=== PATIENT | female | born 1985 | race Two or more races ===

== ENCOUNTER 2020-09-14 14:14 | Outpatient (REF) | payer OTHER, SELFPAY ==
--- NOTE | 2020-09-14 15:35 | XR_ITS ---
EXAMINATION: XR HAND, LEFT XR HAND, RIGHT CLINICAL INFORMATION: Pain. COMPARISON: None TECHNIQUE: 3 views of each hand FINDINGS: Left hand: No fracture or dislocation. Alignment is anatomic. Joint spaces are maintained. No osseous erosions. The soft tissues are unremarkable. Right hand: No fracture or dislocation. Alignment is anatomic. Joint spaces are maintained. No osseous erosions. The soft tissues are unremarkable. XR/XR hand LT min 3V IMPRESSION: Normal appearance of both hands.
--- NOTE | 2020-09-14 15:35 | XR_ITS ---
EXAMINATION: XR HAND, LEFT XR HAND, RIGHT CLINICAL INFORMATION: Pain. COMPARISON: None TECHNIQUE: 3 views of each hand FINDINGS: Left hand: No fracture or dislocation. Alignment is anatomic. Joint spaces are maintained. No osseous erosions. The soft tissues are unremarkable. Right hand: No fracture or dislocation. Alignment is anatomic. Joint spaces are maintained. No osseous erosions. The soft tissues are unremarkable. XR/XR hand RT min 3V IMPRESSION: Normal appearance of both hands.
[2020-09-14 16:04] LABS: MANUAL DIFF FLAG NO
[2020-09-14 16:11] LABS: Basophils Percent Auto 0.5 % (0-2); Eosinophils Absolute Auto 0.1 X10*3/uL (0.0-0.4); Eosinophils Percent Auto 1.8 % (0-4); Hematocrit 36.2 % (37-47); Hemoglobin 11.8 g/dl (12.0-16.0); Imm Gran Abs Auto 0.02 X10*3/uL (0.00-0.03); Imm Gran Pct Auto 0.3 % (0.0-0.4); Lymphocytes Absolute Auto 1.9 X10*3/uL (1.2-4.9); Lymphocytes Percent Auto 25.2 % (20-40); Mean Corpuscular HGB Conc 32.6 g/dl (31.0-35.0); Mean Corpuscular Hemoglobin 26.9 pg (27.0-33.0); Mean Corpuscular Volume 82.5 fL (80-98); Mean Platelet Volume 10.1 fL (9.4-12.3); Monocytes Absolute Auto 0.6 X10*3/uL (0.1-1.2); Monocytes Percent Auto 7.5 % (2-11); Neutrophils Absolute Auto 4.8 X10*3/uL (2.0-8.3); Neutrophils Percent Auto 64.7 % (45-73); Platelet Count 303 X10*3/uL (160-400); Red Blood Count 4.39 X10*6/uL (4.20-5.50); Red Cell Distribution Width 16.2 % (11.0-16.0); White Blood Count 7.3 X10*3/uL (4.8-10.8)
[2020-09-14 16:41] LABS: Alanine Aminotransferase 26 U/L (0-31); Albumin Level 4.1 g/dL (3.5-5.0); Alkaline Phosphatase 56 U/L (39-117); Anion Gap 13 (12-20); Aspartate Amino Transferase 24 U/L (5-31); Bilirubin Total 0.3 mg/dL (0.0-1.0); Blood Urea Nitrogen 15 mg/dL (9-16); C Reactive Protein 0.81 mg/dL (< or = 0.50); Calcium 8.9 mg/dL (8.4-10.2); Carbon Dioxide 24 mmol/L (22-29); Chloride 106 mmol/L (96-108); Estimated Glomerular Filt Rate > 60; Glucose Random 85 mg/dL (60-115); Potassium 4.5 mmol/l (3.3-5.1); Sodium 138 mmol/L (135-145); Total Protein 6.8 g/dL (6.5-8.0)
[2020-09-14 16:43] LABS: Rheumatoid Factor < 15.0 IU/mL (<15.0)
[2020-09-14 16:59] LABS: Thyroid Stimulating Hormone 0.84 uIU/mL (0.32-4.0)
[2020-09-14 18:24] LABS: Erythrocyte Sedimentation Rate 12 MM/HR (0-20)
[2020-09-15 08:57] LABS: Lyme Abs Screen <0.90 index
[2020-09-15 13:56] LABS: Antibody to SS-A Antigen <1.0 NEG AI (<1.0 NEG); Antibody to SS-B Antigen <1.0 NEG AI (<1.0 NEG)
[2020-09-17 19:10] LABS: Cyclic Citrullinated Peptide <16 UNITS
[2020-09-18 15:51] LABS: Vitamin D 25-OH, D2 <4 ng/mL; Vitamin D 25-OH, D3 10 ng/mL; Vitamin D 25-OH, Total 10 ng/mL (30-100)
== END 2020-09-14 14:15 | disposition home or self-care (01) ==
LOC: HO.LAB 14:14
PROVIDERS: PCP Nurse Practitioner Family; Referring Provider Nurse Practitioner Family; Visit Provider Student in an Organized Health Care Education/Training Program
DX: M25.50 Pain in unspecified joint (principal)
CPT/HCPCS: 36415; 73130; 80053; 82306; 84443; 85025; 85652; 86140; 86200; 86235; 86431; 86618; 99202

== ENCOUNTER 2020-10-12 14:17 | Outpatient (REF) | payer OTHER, SELFPAY | END 2020-10-12 14:18 | disposition home or self-care (01) | LOC: HO.LAB 14:17 | PROVIDERS: PCP Nurse Practitioner Family; Visit Provider Internal Medicine | DX: Z20.828 Contact with and (suspected) exposure to other viral communicable diseases (principal) | CPT/HCPCS: C9803; U0003 ==

== ENCOUNTER → 2020-10-19 10:56 | Outpatient (BNVA) | payer OTHER, SELFPAY | PROVIDERS: PCP Nurse Practitioner Family; Visit Provider Student in an Organized Health Care Education/Training Program | DX: Z76.89 Persons encountering health services in other specified circumstances (principal) ==

== ENCOUNTER 2025-05-02 08:28 | Outpatient (REF) | payer MEDICAID, SELFPAY ==
[2025-05-02 15:10] LABS: Hemoglobin A1C 105.6971 umol/L; Total Hemoglobin (HGBA1C) 3357.4989 umol/L
[2025-05-02 15:22] LABS: Estimated Glomerular Filt Rate > 60
== END 2025-05-02 08:29 | disposition home or self-care (01) ==
LOC: HO.HKASLDS 08:28
PROVIDERS: PCP Nurse Practitioner Family; Visit Provider Internal Medicine Rheumatology
DX: Z13.89 Encounter for screening for other disorder (principal)
CPT/HCPCS: 36415; 82565; 83036; 84443; 99212

== ENCOUNTER 2025-05-02 08:28 | Outpatient (AMB) | payer MEDICAID, SELFPAY ==
--- NOTE | 2025-05-02 08:30 | MHC.OFFVIS ---
Vital Signs 05/02/25 08:34 Height 5 ft 3.5 in Weight 236 lb 8 oz BMI 41.2 BP 110/72 Blood Pressure Location Lt brachial Position Sitting Pulse 65 Pulse Source Pulse Oximeter Pulse Oximetry (%) 95 Oxygen Delivery Method Room Air Intake Visit Reasons: OA Intake Note: Patient presents today for joint pain. Allergies acetaminophen (From Tylenol) Allergy (Intermediate, Verified 05/02/25 08:30) Vomiting Penicillins Allergy (Intermediate, Verified 05/02/25 08:30) swollen HPI HPI OA: Details: She has been experiencing pain in bilateral knees left worse than right. She is having difficulty with ambulating. She is experiencing sharp pains in bilateral feet that radiate up to the knee for the last 6 months. She was using her right hinged brace but reports recently that she could not find it. She may have left it at a doctor's visit. She went to physical therapy, which ended in November or December. She does about 20 minutes of exercise daily. It is difficult for her to do more due to uncontrolled pain. [facility] Medical History (Updated 05/02/25 @ 09:14 by Jake Macias MD) Chronic pain Asthma Surgical History (Updated 05/02/25 @ 08:43 by Josseline Chavarria CMA) History of hernia repair Hx of tubal ligation Family History Father Diabetes HTN (hypertension) Arthritis Mother HTN (hypertension) Arthritis CVD (cardiovascular disease) Maternal Aunt Breast cancer Colon cancer Social History Household Members: Children Alcohol intake: current Cigarettes Per Day: 5 Years Smoked: 20 Physical Exam Vital Signs: Last Vital Signs Pulse 65 05/02/25 08:34 BP 110/72 05/02/25 08:34 Pulse Ox 95 05/02/25 08:34 Oxygen Delivery Method Room Air 05/02/25 08:34 BMI result Body Mass Index 41.2 Const Other: General: Comfortable CVS: RRR Respiratory: clear to auscultation bilaterally. Good respiratory effort Skin: No lesions seen MSK: Diffuse allodynia. Tender to palpate bilateral knees. Left crepitus palpated. Knee flexion 90 degrees bilateral. No synovitis. Assessment & Plan Assessment & Plan (1) Osteoarthritis of knees, bilateral: Comment: Uncontrolled pain. She is also experiencing uncontrolled pain from fibromyalgia. We discussed treatment for chronic pain from knee osteoarthritis with duloxetine, which also treats pain from fibromyalgia. I will obtain baseline labs. Rheumatology history: She received right cortisone injection September 2023 and December 2023, which were ineffective. X-ray 11/07/2021 reveals minimal degenerative changes, left knee x-ray from 04/07/2024 is normal. She has failed meloxicam and diclofenac gel. Code(s): M17.0 - Bilateral primary osteoarthritis of knee Category: Medical Plan: Bilateral knee x-rays ordered Baseline labs ordered Start duloxetine 30 mg daily. After a month if she finds no change in pain, she will call office and I will increase dose to 60 mg daily Left knee hinged brace prescription prescribed Continue exercises daily Return to clinic in 3 months (2) Neuropathy of foot: Comment: Six-month history. Her father has diabetic neuropathy. Code(s): G57.90 - Unspecified mononeuropathy of unspecified lower limb Category: Medical Plan: TSH and hemoglobin A1c ordered. If negative, I will order bilateral lower extremity EMGS (3) Fibromyalgia: Comment: Uncontrolled Code(s): M79.7 - Fibromyalgia Category: Medical Plan: See above Orders: Orders XR Knee Roger 3V Today M17.0 - Bilateral primary osteoarthritis of knee Hemoglobin A1c Today G57.90 - Unspecified mononeuropathy of unspecified lower limb TSH reflex Free T4 Today M17.0 - Bilateral primary osteoarthritis of knee Creatinine Today M17.0 - Bilateral primary osteoarthritis of knee Medications: New duloxetine 30 mg PO DAILY 30 caps 2RF leg brace (Knee Support Brace) As directed Dx: osteoarthritis knee Left hinge knee brace 1 ea 0RF Coding Level of Care Code Est Pt Level 4 (76490) Complex EM visit Add On G2211 Diagnoses Osteoarthritis of knees, bilateral M17.0 Neuropathy of foot G57.90 Fibromyalgia M79.7
--- OUTSIDE RECORDS SUMMARY | 2025-05-02 08:32 | XMS_ITS | Encounter Summary ---
Author Organization [facility] Address [address] [place] [address] Care Team Providers Care Tyre Retreader Name Role Phone Millie Layton ANA Primary Care Provider Encounter Details Date Type Department Care Team (Late st Contact Info) Description 09/16/2023 / TELEPHONE [facility] [address] [place] [phone] Padmini Cochran [address] [place] [address] Social History Tobacco Use Types Packs/Day Years Used Date Smoking Tobacco: Every Day Cigarettes 0.5 25 Smokeless Tobacco: Current Alcohol Use Standard Drinks/Week Comments Yes 0 (1 standard drink = 0.6 oz pur e alcohol) occasionally Social Connections Answer Date Recorded Connectedness 0 05/15/2023 Financial Resource Strain Answer Date R ecorded Financial Resource Strain 0 2022 Stress Answer Date Recorded Stress 0 05/15/2023 Physical Activity Answer Date Recorded Physical Activity 0 06/27/2019 Food Insecurity Answer Date Recorded Food 0 05/15/2023 Transportation Needs Answer Date Record ed Transportation 0 05/15/2023 Housing Stability Answer Date Recorded Housing 0 05/15/2023 Safety and Environment Answer Date Josesito rded Safety 0 05/15/2023 Utilities Answer Date Recorded Utilities 0 05/15/2023 Employment Answer Date Recorded Stress 0 01/20/2022 Comments No Sex and Gender Information Value Date Recorded Sex Assigned at Female 01/04/2019 12:22 PM PST Legal Sex Female 8:04 AM PST Gender Identity Female 01/04/2019 12:22 PM PST Sexual Orientation Straight 01/04/2019 12 :54 PM PST Occupation Industry Job Start Date Job End Date not working, stopped due to fall at previous job Not on file Not on file Not on file documented as of this encounter Plan of Treatment Upcoming Encounters Date Type Department Care Team (Late st Contact Info) Description 05/15/2025 9:00 AM EDT BH/MH Visits [facility] [address] [place] [phone] Kyle Owens LCSW [address] [place] [address] 06/22/2025 11:40 AM EDT BH/MH Visits [facility] [address] [place] [phone] Pat Garcia FNP [address] [place] [phone] 07/25/2025 9:20 AM EDT Office Visit [facility] [address] [place] [phone] Michele Bruno MD [address] [place] [phone] documented as of this encounter Visit Diagnoses Diagnosis Agoraphobia- Primary Agoraphobia without mention of panic attacks MDD (major depressive disorder), recurrent episode, moderate (CMS & HHS-HCC) Major depressive disorder, recurrent episode, moderate documented in this encounter Additional Health Concerns Assessment Noted Time PHQ-9 Depression Total Score: 9 08/12/20 23 9:37 AM PDT documented as of this encounter Care Teams Tyre Retreader Relationship Specialty Start Date End Date Millie Layton FNP [address] [place] [phone] PCP - General Internal Medicine 08/06/19 documented as of this encounter
--- OUTSIDE RECORDS SUMMARY | 2025-05-02 08:32 | XMS_ITS | Clinical Summary ---
Author Organization [facility] Address [address] [place] [address] Phone Care Team Providers Care Maintenance Manager Name Role Phone BijuMillie ng JACKIE Primary Care Provider [phone] Allergies Active Allergy Reactions Criticality Noted Date Comments Acetaminophen 05/23/2024 Other 05/23/2024 Penicillins 05/23/2024 Medications meclizine HCl (MECLIZINE ORAL) Take by mouth. Active BUPROPION HCL ORAL Take by mouth. Active tramadol HCl (TRAMADOL ORAL) Take by mouth. Active baclofen (LIORESAL) 10 mg tablet Take 1 tablet (10 mg total) by mouth 3 (three) times a day for 5 days. 15 each 04/11/2025 Active predniSONE (DELTASONE) 20 mg tablet Take 1 tablet (20 mg total) by mouth 1 (one) time each day for 10 days. 10 each 04/11/2025 Encounters Date Type Department Care Team Description 04/11/2025 10:00 AM EDT - 04/11/2025 1:46 PM EDT Emergency [facility] Emergency [address] [place] [address] Pain in both lower extremities (Primary Dx) Discharge Disposition: Home or Self Care from Last 3 Months Social History Tobacco Use Types Packs/Day Years Used Date Smoking Tobacco: Never Assessed Comments Unknown Sex and Gender Information Value Date Recorded Sex Assigned at Not on file Legal Sex Female 6:16 PM EST Gender Identity Not on file Sexual Orientation Not on file Obstetrics History Last Filed Vital Signs Vital Sign Reading Time Taken Comments Blood Pressure 137/90 04/11/2025 9:49 AM EDT Pulse 89 04/11/2025 9:49 AM EDT Temperature 36.8 C (98.2 F) 04/11/2025 9:49 AM EDT Respiratory Rate 18 04/11/2025 9:49 AM EDT Oxygen Saturation 96% 04/11/2025 9:49 AM EDT Inhaled Oxygen Concentration - - Weight 108 kg (238 lb) 04/11/2025 9:49 AM EDT Height 160 cm (5' 3 ) 04/11/2025 9:49 AM EDT Body Mass Index 42.16 04/11/2025 9:49 AM EDT Plan of Treatment Health Maintenance Due Date Last Done Comments Breast Cancer Screening 1983 Hepatitis A Vaccines (1 of 2 - Risk 2-dose series) 2002 Cervical Cancer Screening: Pap Smear 02/09/2004 Hepatitis B Vaccines (3 of 3 - 19+ 3-dose series) 11/22/2014 09/27/2014, 03/30/2014 HIV Screening 10/04/2022 Social Influencers of Health Screening 10/04/2022 COVID-19 Vaccine ( season) 2024 01/02/2022, 11/21/2021 Influenza Vaccine (#1) 2025 , 10/07/2019, 11/20/2017, Additional history exists Depression Screening 05/01/2026 05/01/2025 Cholesterol Screening (Lipid Panel) 12/01/2028 12/01/2023, 12/01/2023, 01/14/2023, Additional history exists DTaP,Tdap,and Td Vaccines (4 - Td or Tdap) 05/19/2033 05/19/2023, 10/07/2019, 07/10/2011 HPV Vaccines Completed 06/12/2010, 0705/2008, 02/29/2008 Hepatitis C Screening Completed 10/10/2020, 020 Pneumococcal Vaccine: Pediatrics (0 to 5 Years) and At-Risk Patients (6 to 64 Years) Completed 06/29/2024, 11/20/2017 HIB Vaccines Aged Out No longer eligi ble based on patient's age to complete this topic IPV Vaccines Aged Out No longer eligi ble based on patient's age to complete this topic MMR Vaccines Aged Out No longer eligi ble based on patient's age to complete this topic Meningococcal ACWY Vaccine Aged Out N o longer eligible based on patient's age to complete this topic Meningococcal B Vaccine Aged Out No l onger eligible based on patient's age to complete this topic RSV Immunization Patients Under 20 months Aged Out No longer eligible based on patient's age to complete this topic Varicella Vaccines Aged Out No longer eligible based on patient's age to complete this topic Procedures Procedure Name Priority Date/Time Associated Diagnosis Comments VAS US DUPLEX LOWER EXT VENOUS BILAT STAT 04/11/2025 11:52 AM EDT Pain in both lower extremities CBC WITH AUTO DIFFERENTIAL STAT 04/11/2025 11:01 AM EDT BORRELIA BURGDORFERI ANTIBODY STAT 04/11/2025 11:01 AM EDT BASIC METABOLIC PANEL STAT 04/11/2025 11:01 AM EDT CBC AND DIFFERENTIAL STAT 04/11/2025 11:01 AM EDT THYROID STIMULATING HORMONE WITH REFLEX TO FREE T4 AND FREE T3 STAT 04/11/2025 11:01 AM EDT from Last 3 Months Results * Vascular US Duplex Lower Extremity Venous Bilateral (04/11/2025 11:52 AM EDT) Anatomical Region Laterality Modality Vascular, Abdomen Ultrasound 04/11/2025 12:0 3 PM EDT Impressions 04/11/2025 12:03 PM EDT NO RIGHT OR LEFT LOWER EXTREMITY DEEP VENOUS THROMBOSIS. -------- FINAL REPORT -------- Dictated By: Torri Macias Dictated Date: 04/11/2025 12:03 ET Assigned Physician: Torri Macias Reviewed and Electronically Signed By: Torri Macias Signed Date: 04/11/2025 12:03 ET Workstation ID: [id number] Transcribed By: Self Edit Transcribed Date: 04/11/2025 12:03 ET Narrative 04/11/2025 12:03 PM EDT PROCEDURE: VAS US DUPLEX LOWER EXT VENOUS BILAT INDICATION: pain in extremities TECHNIQUE: 2-D and color Doppler imaging of the lower extremity venous vasculature with compression and augmentation maneuvers. COMPARISON: No priors available. FINDINGS: RIGHT: There is normal flow, compression, and augmentation from the common femoral through the popliteal vein. Visualized calf veins unremarkable. LEFT: There is normal flow, compression, and augmentation from the common femoral through the popliteal vein. Visualized calf veins unremarkable. Procedure Note Torri Macias MD - 04/11/2025 PROCEDURE: VAS US DUPLEX LOWER EXT VENOUS BILAT INDICATION: pain in extremities TECHNIQUE: 2-D and color Doppler imaging of the lower extremity venousvasculature with compression and augmentation maneuvers. COMPARISON: No priors available. FINDINGS: RIGHT: There is normal flow, compression, and augmentation from the commonfemoral through the popliteal vein. Visualized calf veins unremarkable. LEFT: There is normal flow, compression, and augmentation from the commonfemoral through the popliteal vein. Visualized calf veins unremarkable. IMPRESSION: NO RIGHT OR LEFT LOWER EXTREMITY DEEP VENOUS THROMBOSIS. -------- FINAL REPORT -------- Dictated By: Torri Macias Dictated Date: 04/11/2025 12:03 ET Assigned Physician: Torri Macias Reviewed and Electronically Signed By: Torri Macias Signed Date: 04/11/2025 12:03 ET Workstation ID: [id number] Transcribed By: Self Edit Transcribed Date: 04/11/2025 12:03 ET Leana BAEZA CV VASCULAR PROCEDURES F inal Result * Thyroid stimulating hormone with reflex to free t4 and free t3 (TSH Reflex) (04/11/2025 11:01 AM EDT) TSH 1.16 0.40 - 4.00 mcIU/mL LAB CHEMISTRY METHOD 04/11/2025 12:58 PM EDT [facility] ([facility]) [facility] Blood Venous blood specimen / Unknown Venipuncture / Unknown 04/11/2025 11:01 AM EDT 04/11/2025 11:10 AM EDT Leana BAEZA LAB BLOOD ORDERABLES Fin al Result [facility] [address] [place] [address], * (ABNORMAL) CBC auto differential (04/11/2025 11:01 AM EDT) [facility] WBC 5.0 4.8 - 10.8 K/mcL LAB HEMETOLOGY METHOD 04/11/2025 11:18 AM EDT [facility] RBC 4.50 3.80 - 4.80 M/mcL LAB HEMETOLOGY METHOD 04/11/2025 11:18 AM EDT [facility] Hemoglobin 11.5 11.5 - 16.0 g/dL LAB HEMETOLOGY METHOD 04/11/2025 11:18 AM [facility] Hematocrit 36.7 35.0 - 47.0 % LAB HEMETOLOGY METHOD 04/11/2025 11:18 AM EDT [facility] MCV 81.6 79.0 - 98.0 FL LAB [facility]OLOGY [facility] MCH 25.6(L) 27.0 - 32.0 pcg LAB HEMETOLOGY METHOD 04/11/2025 11:18 AM [facility] MCHC 31.3(L) 32.0 - 37.0 g/dL LAB HEMETOLOGY METHOD [facility] RDW 16.6(H) 11.0 - 15.0 % LAB HEMETOLOGY METHOD 04/11/2025 11:18 AM EDT [facility] Platelets 303 130 - 400 K/mcL LAB HEMETOLOGY METHOD [facility] MPV 9.7 7.0 - 11.0 FL LAB HEMETOLOGY METHOD 04/11/2025 11:18 AM EDT [facility] NRBC 0.0 <1.0 % LAB HEMETOLOGY METHOD 04/11/2025 11:18 AM [facility] NRBC Absolute 0.00 <0.10 K/mcL LAB HEMETOLOGY METHOD 04/11/2025 11:18 AM [facility] Neutrophils Relative 52.6 % LAB HEMETOLOGY METHOD 04/11/2025 11:18 AM [facility] Lymphocytes Relative 35.8 % LAB HEMETOLOGY METHOD 04/11/2025 11:18 AM [facility] Monocytes Relative 6.4 % LAB HEMETOLOGY METHOD 04/11/2025 11:18 AM [facility] Eosinophils Relative 4.0 % LAB HEMETOLOGY METHOD 04/11/2025 11:18 AM [facility] Basophils Relative 0.8 % LAB HEMETOLOGY METHOD 04/11/2025 11:18 AM [facility] Immature Granulocytes Relative 0.4 % LAB HEMETOLOGY METHOD 04/11/2025 11:18 AM [facility] Neutrophils Absolute 2.63 1.50 - 7.00 K/mcL LAB HEMETOLOGY METHOD 04/11/2025 11:18 AM [facility] Lymphocytes Absolute 1.79 1.00 - 5.00 K/mcL LAB HEMETOLOGY METHOD 04/11/2025 11:18 AM [facility] Monocytes Absolute 0.32 0.20 - 1.00 K/mcL LAB HEMETOLOGY METHOD 04/11/2025 11:18 AM [facility] Eosinophils Absolute 0.20 0.00 - 0.50 K/mcL LAB HEMETOLOGY METHOD 04/11/2025 11:18 AM [facility] Basophils Absolute 0.04 0.00 - 0.20 K/mcL LAB HEMETOLOGY METHOD 04/11/2025 11:18 AM [facility] Immature Granulocytes Absolute 0.02 0.00 - 0.03 K/mcL LAB HEMETOLOGY METHOD 04/11/2025 11:18 AM EDT [facility] Blood Venous blood specimen / Unknown Venipuncture / Unknown 04/11/2025 11:01 AM EDT 04/11/2025 11:10 AM EDT [facility] LAB BLOOD ORDERABLES Fin al Result Performing Organization Address [facility] de Phone Number [facility] [address] [place] [address], * Borrelia burgdorferi antibody (04/11/2025 11:01 AM EDT) [facility] Lyme Ab Negative Negative LAB CHEMISTRY METHOD 04/11/2025 2:22 PM EDT [facility] Comment: No laboratory evidence of infection with B. burgdorferi (Lyme disease). Negative results may occur in patients recently infected (<=14 days) with B. burgdorferi. If recent infection is suspected, repeat testing on a new sample collected in 7- 14 days is recommended. Blood Venous blood specimen / Unknown Venipuncture / Unknown 04/11/2025 11:01 AM EDT 04/11/2025 11:10 AM EDT [facility] [place] LAB BLOOD ORDERABLES Fin al Result Performing Organization Address City/[facility]/ZIP Co de Phone Number [facility] [address] [place] [address], [place] [phone] * (ABNORMAL) Basic metabolic panel (04/11/2025 11:01 AM EDT) [facility] Sodium 142 133 - 145 mmol/L LAB CHEMISTRY METHOD 04/11/2025 11:54 AM EDT [facility] Potassium 4.0 3.5 - 5.5 mmol/L LAB CHEMISTRY METHOD 04/11/2025 11:54 AM EDT [facility] Chloride 112(H) 96 - 110 mmol/L LAB CHEMISTRY METHOD 04/11/2025 11:54 AM [facility] CO2 25 21 - 32 mmol/L LAB CHEMISTRY METHOD 04/11/2025 11:54 AM [facility] Anion Gap 5 3 - 11 LAB CHEMISTRY METHOD 04/11/2025 11:54 AM [facility] Glucose 126(H) 70 - 100 mg/dL LAB CHEMISTRY METHOD 04/11/2025 11:54 AM [facility] BUN 10 5 - 25 mg/dL LAB CHEMISTRY METHOD 04/11/2025 11:54 AM [facility] Creatinine 0.73 0.50 - 1.10 mg/dL LAB CHEMISTRY METHOD 04/11/2025 11:54 AM [facility] eGFR 105 >=60 mL/min/1. 73m2 LAB CHEMISTRY METHOD 04/11/2025 11:54 AM [facility] Comment:Calculation based on the Chronic Kidney Disease Epidemiology Collaboration (CKD-EPI) equation refit without adjustment for race. BUN/Creatinine Ratio 13.7 LAB CHEMISTRY METHOD 04/11/2025 11:54 AM [facility] Calcium 8.5 8.5 - 10.5 mg/dL LAB CHEMISTRY METHOD 04/11/2025 11:54 AM [facility] Blood Venous blood specimen / Unknown Venipuncture / Unknown 04/11/2025 11:01 AM EDT 04/11/2025 11:10 AM EDT us Leana BAEZA LAB BLOOD ORDERABLES Fin al Result [facility] [address] [place] [address], [place] [phone] from Last 3 Months Insurance MEDICAID - [place] Care Teams Maintenance Manager Relationship Specialty Start Date End Date Millie Layton NP [address] [place] [phone] PCP - General 07/14/22
[2025-05-02 08:34] VITALS: BP 110/72; PULSE 65; O2SAT 95; BMI 41.2
== END 2025-05-02 09:10 | disposition home or self-care (01) ==
PROVIDERS: PCP Nurse Practitioner Family; Visit Provider Internal Medicine Rheumatology
DX: M17.0 Bilateral primary osteoarthritis of knee (principal); G57.90 Unspecified mononeuropathy of unspecified lower limb; M79.7 Fibromyalgia
CPT/HCPCS: 99214

== ENCOUNTER 2025-05-02 10:08 | Outpatient (REF) | payer MEDICAID, SELFPAY ==
--- NOTE | ~2025-05-02 | XR_ITS ---
Exam: Three-view x-ray bilateral knees TECHNIQUE: AP bilateral standing, lateral, sunrise view lower extremity joint, knees INDICATION: Knee pain Prior: None FINDINGS: Right knee: There is no joint effusion. There is mild narrowing of the medial joint space. Minimal marginal osteophyte formation is present along the medial tibial plateau. There is no soft tissue calcification or chondrocalcinosis. Patellofemoral joint is anatomically aligned. Left knee: There is no joint effusion. There is mild narrowing of the medial joint space. There are small marginal osteophytes along the medial tibial plateau. Patellofemoral joint is unremarkable. XR/XR Knee Roger 3V IMPRESSION: Bilateral knees: Mild medial joint space narrowing and small marginal osteophytes, likely related to early osteoarthritis. Electronically signed by: Kal Dumont MD 05/02/2025 10:31 AM EDT
== END 2025-05-02 10:09 | disposition home or self-care (01) ==
LOC: HO.XRAY 10:08
PROVIDERS: Visit Provider Internal Medicine Rheumatology
DX: M17.0 Bilateral primary osteoarthritis of knee (principal)
CPT/HCPCS: 36415; 73562; 82565; 83036; 84443; 99212

== ENCOUNTER → 2025-05-02 10:11 | Outpatient (BNV) | payer MEDICAID, SELFPAY | PROVIDERS: Visit Provider Radiology Diagnostic Radiology | DX: M25.562 Pain in left knee (principal); M25.561 Pain in right knee | CPT/HCPCS: 73562 ==

== ENCOUNTER 2025-06-02 14:01 | Outpatient (REF) | payer MEDICAID, SELFPAY ==
--- NOTE | 2025-06-02 14:04 | EMG_ITS ---
Chief complaint: Been burning on both feet/legs, denies numbness Reason for referral: Evaluate for neuropathy Referred by: Dr. Macias Procedure done: Bilateral lower extremity NCS/EMG Precautions and/or limitations: Poor needle tolerance The limb temperature was monitored continuously and remained between 32-36 degrees C during the performance of the NCS. Nerve Conduction Studies Anti Sensory Summary Table ?Stim Site NR Onset (ms) Norm Onset (ms) Peak (ms) Norm Peak (ms) O-P Amp (?V) Norm O-P Amp Site1 Site2 Delta-0 (ms) Dist (cm) Vasu (m/s) Norm Vasu (m/s) Left Sural Anti Sensory Run #2 (Lat Mall) Calf ? 2.5 3.0 <4.0 8.6 >5.0 Calf Lat Mall 2.5 14.0 56 Right Sural Anti Sensory (Lat Mall) Calf ? 2.0 3.0 <4.0 17.3 >5.0 Calf Lat Mall 2.0 14.0 70 Motor Summary Table ?Stim Site NR Onset (ms) Norm Onset (ms) O-P Amp (mV) Norm O-P Amp iAmp (mV) Amp (1st) (%) Site1 Site2 Delta-0 (ms) Dist (cm) Vasu (m/s) Norm Vasu (m/s) Left Peroneal Motor (Ext Dig Brev) Ankle ? 3.7 <4.0 6.8 >2.5 8.4 100.0 Ankle Ext Dig Brev 3.7 0.0 B Fib ? 9.3 6.2 7.7 91.2 B Fib Ankle 5.6 31.0 55 >40 Poplt ? 9.8 6.3 7.7 92.6 Poplt B Fib 0.5 5.0 100 >40 Right Peroneal Motor (Ext Dig Brev) Ankle ? 3.9 <4.0 5.4 >2.5 6.5 100.0 Ankle Ext Dig Brev 3.9 0.0 B Fib ? 9.9 5.1 6.1 94.4 B Fib Ankle 6.0 30.0 50 >40 Poplt ? 10.7 5.1 6.0 94.4 Poplt B Fib 0.8 5.0 63 >40 Right Tibial Motor (Abd Mcknight Brev) Ankle ? 2.9 <5 13.2 >2.5 18.7 100.0 Ankle Abd Mcknight Brev 2.9 0.0 Knee ? 9.6 10.7 14.9 81.1 Knee Ankle 6.7 36.0 54 >40 EMG ?Side Muscle Nerve Root Ins Act Fibs Psw Amp Dur Poly Recrt Int Pat Comment Right AbdHallucis MedPlantar S1-2 Nml Nml Nml Nml Nml 0 Nml Complete Right AntTibialis Dp Br Peron L4-5 Nml Nml Nml Nml Nml 0 Nml Complete Right PostTibialis Tibial L5, S1 Nml Nml Nml Nml Nml 0 Nml Complete Right MedGastroc Tibial S1-2 Nml Nml Nml Nml Nml 0 Nml Complete Right VastusMed Femoral L2-4 Nml Nml Nml Nml Nml 0 Nml Complete FINDINGS: All motor and sensory nerves tested showed normal latencies, amplitudes and conduction velocities. Concentric needle EMG was performed in selected muscles of the right lower extremity. Study did not reveal signs of electric abnormalities as shown in the table above. IMPRESSION: 1. This is a normal study. 2. There is no electrodiagnostic evidence for peroneal neuropathy, tibial neuropathy, lumbosacral plexopathy, lumbar radiculopathy, or peripheral neuropathy. Thank you for your kind referral. Nichole Ojeda MD, MAYTE Board Certified, [place] Board [employer] and Rehabilitation (ABPMR) Board Certified, [place] Board of Electrodiagnostic Medicine (ABEM) CODIN [address] MTDD
--- OUTSIDE RECORDS SUMMARY | 2025-06-02 14:04 | XMS_ITS | Clinical Summary ---
Author Organization [facility] Address [address] [place] [address] [address] Prov[address] Care Court Liaison Name Role Phone Unavailable Primary Care Provider Unavailabl e Encounters Date Type Department Care Team Description 05/23/2025 Population Health Risk Score [facility] (C3) Department [address] [phone] Provider, Population Health Generic from Last 3 Months Social History Tobacco Use Types Packs/Day Years Used Date Smoking Tobacco: Never Assessed Comments Unknown Sex and Gender Information Value Date Recorded Sex Assigned at Not on file Legal Sex Female 9:21 PM EDT Gender Identity Not on file Sexual Orientation Not on file Plan of Treatment Health Maintenance Due Date Last Done Comments Depression Screening 1983 HIV Screening 1983 SDOH Screening 1983 Disability Screening 1983 Alcohol/Substance Use Screening 1995 Tobacco Screening 1995 Family Planning (PISQ) 1998 HPV Vaccines (1 - 3-dose series) 1998 Hepatitis C Screening 2001 DTaP/Tdap/Td Vaccines (1 - Tdap) 2002 Hepatitis B Vaccines (1 of 3 - 19+ 3-dose series) 2002 Pap Smear 02/09/2004 Cervical Cancer Screening 2013 HPV/Cotest 2013 Mammogram 2023 COVID-19 Vaccine ( - 2023-2 5 season) 2024 Influenza Vaccine (#1) 2025 Zoster Vaccines (1 of 2) 2033 RSV Patients and Pa tients Aged 60 years or older (1 - 1-dose 75+ series) 2058 HIB Vaccines Aged Out No longer eligi ble based on patient's age to complete this topic Hepatitis A Vaccines Aged Out No long er eligible based on patient's age to complete this topic IPV Vaccines Aged Out No longer eligi ble based on patient's age to complete this topic Meningococcal B Vaccine Aged Out No l onger eligible based on patient's age to complete this topic Meningococcal Vaccine Aged Out No dilcia richard eligible based on patient's age to complete this topic Pneumococcal Vaccine: Pediat rics (0 to 5 Years) and At-Risk Patients (6 to 49) Years Aged Out No longer eligible b ased on patient's age to complete this topic RSV under 20 months Aged Out No longe r eligible based on patient's age to complete this topic Rotavirus Vaccines Aged Out No longer eligible based on patient's age to complete this topic
--- OUTSIDE RECORDS SUMMARY | 2025-06-02 14:04 | XMS_ITS | Encounter Summary ---
Author Organization [facility] Address [address] [place] [address] Care Team Providers Care Singing Teacher Name Role Phone Millie Layton ANA Primary Care Provider [phone] Encounter Details Date Type Department Care Team (Late st Contact Info) Description 09/16/2023 / TELEPHONE [facility] [address] [place] [phone] Padmini Cochran [address] [place] [address] Social History Tobacco Use Types Packs/Day Years [...] Care Team (Late st Contact Info) Description 06/22/2025 11:40 AM EDT /MH Visits [facility] [address] [place] [phone] Pat Garcia FNP [address] [place] [address] 07/25/2025 9:20 AM EDT Office Visit [facility] [address] [place] [phone] Michele Bruno MD [facility] [place] [address] documented as of this encounter Visit Diagnoses Diagnosis Agoraphobia- Primary Agoraphobia without mention of panic attacks MDD (major depressive disorder), recurrent episode, moderate (CMS & HHS-HCC) Major depressive disorder, recurrent episode, moderate documented in this encounter Additional Health Concerns Assessment Noted Time PHQ-9 Depression Total Score: 9 08/12/20 23 9:37 AM PDT documented as of this encounter Care Teams Singing Teacher Relationship Specialty Start Date End Date Millie Layton FNP [address] [place] [id number] PCP - General Internal Medicine 08/06/19 documented as of this encounter
--- OUTSIDE RECORDS SUMMARY | 2025-06-02 14:04 | XMS_ITS | Clinical Summary ---
Author Organization [facility] Address [address] [place] [address] Phone Care Team Providers Care Supervisor Endless Track Vehicle Name Role Phone Millie Layton NP Primary Care Provider [phone] Allergies Active Allergy Reactions Criticality Noted Date Comments Acetaminophen 05/23/2024 Other 05/23/2024 Penicillins 05/23/2024 Pregabalin Palpitations 03/12/2022 Chest discomfort Shrimp 03/12/2022 Medications meclizine HCl (MECLIZINE ORAL) Take by mouth. Active BUPROPION HCL ORAL Take by mouth. Active tramadol HCl (TRAMADOL ORAL) Take by mouth. Active baclofen (LIORESAL) 10 mg tablet Take 1 tablet (10 mg total) by mouth 3 (three) times a day for 5 days. 15 each 04/11/2025 Active Encounters Date Type Department Care Team Description 05/22/2025 12:00 PM EDT - 05/22/2025 4:48 PM EDT [facility] Emergency [address] [place] [address] Rosemary Herring MD Left lower quadrant abdominal pain (Primary Dx) Discharge Disposition: Left Against Medical Advice 04/11/2025 10:00 AM EDT - 04/11/2025 1:46 PM EDT [facility] [address] [place] [address] Pain in both lower extremities (Primary Dx) Discharge Disposition: Home or Self Care from Last 3 Months Medical History Medical History Date Comments Asthma Depression Anxiety Social History Tobacco Use Types Packs/Day Years Used Date Smoking Tobacco: Every Day Cigarettes Smokeless Tobacco: Never Tobacco Cessation:Ready to Q uit: Not Asked; Counseling Given: Not Answered Comments Unknown Sex and Gender Information Value Date Recorded Sex Assigned at Not on file Legal Sex Female 6:16 PM EST Gender Identity Not on file Sexual Orientation Not on file Obstetrics History Last Filed Vital Signs Vital Sign Reading Time Taken Comments Blood Pressure 131/62 05/22/2025 12:18 PM EDT Pulse 89 05/22/2025 12:18 PM EDT Temperature 37.4 C (99.3 F) 05/22/2025 12:18 PM EDT Respiratory Rate 18 05/22/2025 12:18 PM EDT Oxygen Saturation 97% 05/22/2025 12:18 PM EDT Inhaled Oxygen Concentration - - Weight 104 kg (230 lb) 05/22/2025 12:05 PM EDT Height 160 cm (5' 3 ) 05/22/2025 12:05 PM EDT Body Mass Index 40.74 05/22/2025 12:05 PM EDT Plan of Treatment Health Maintenance Due Date Last Done Comments Breast Cancer Screening 1983 Hepatitis A Vaccines (1 of 2 - Risk 2-dose series) 2002 Cervical Cancer Screening: Pap Smear 02/09/2004 Hepatitis B Vaccines (3 of 3 - 19+ 3-dose series) 11/22/2014 09/27/2014, 03/30/2014 HIV Screening 10/04/2022 Social Influencers of Health Screening 10/04/2022 COVID-19 Vaccine ( season) 2024 01/02/2022, 11/21/2021 Depression Screening 11/02/2024 Influenza Vaccine (#1) 2025 , 10/07/2019, 11/20/2017, Additional history exists Cholesterol Screening (Lipid Panel) 12/01/2028 12/01/2023, 12/01/2023, 01/14/2023, Additional history exists DTaP,Tdap,and Td Vaccines (4 - Td or Tdap) 05/19/2033 05/19/2023, 10/07/2019, 07/10/2011 HPV Vaccines Completed 06/12/2010, 05/2008, 02/29/2008 Hepatitis C Screening Completed 10/10/2020, 020 Pneumococcal Vaccine: Pediatrics (0 to 5 Years) and At-Risk Patients (6 to 49 Years) Completed 06/29/2024, 11/20/2017 HIB Vaccines Aged [...] Procedure Name Priority Date/Time Associated Diagnosis Comments HOFFMAN URINE CULTURE TUBE Routine 05/22/2025 1:38 PM EDT EXTRA TUBES Routine 05/22/2025 1:38 PM EDT POC , URINE DIAGNOSTIC STAT 05/22/2025 1:14 PM EDT URINALYSIS WITH REFLEX MICROSCOPIC STAT 05/22/2025 1:12 PM EDT URINALYSIS WITH REFLEX MICROSCOPIC STAT 05/22/2025 1:12 PM EDT CBC WITH AUTO DIFFERENTIAL STAT 05/22/2025 12:58 PM EDT LIPASE STAT 05/22/2025 12:58 PM EDT COMPREHENSIVE METABOLIC PANEL STAT 05/22/2025 12:58 PM EDT CBC AND DIFFERENTIAL STAT 05/22/2025 12:58 PM EDT VAS US DUPLEX LOWER EXT VENOUS BILAT [...] EDT from Last 3 Months Results * Hoffman urine culture tube (05/22/2025 1:38 PM EDT) [facility] Extra Tube Hold for add-ons. 05/22/2025 3:01 PM EDT [facility] Comment:Auto resulted. Urine Urine specimen obtained by clean catch procedure / Unknown 05/22/2025 1:38 PM EDT 05/22/2025 1:39 PM EDT us Rosemary Herring MD LAB URINE ORDERABLES Final Resul t [facility] [address] [place] [address], [place] [phone] * POC , urine manually resulted (05/22/2025 1:14 PM EDT) [facility] HCG, Ur POC Negative Negative POC hCG Int QC Pass? Yes Yes Urine Urine specimen obtained by clean catch procedure / Unknown 05/22/2025 1:14 PM EDT us Rosemary Herring MD POINT OF CARE TEST ENTER/EDIT OR DERABLES Final Result * (ABNORMAL) Urinalysis with reflex microscopic (05/22/2025 1:12 PM EDT) [facility] Specific [place] Urine 1.021 1.003 - 1.030 LAB URINALYSIS - AUTOMATED METHOD 05/22/2025 2:05 PM [facility] pH, Urine 6.0 5.0 - 8.0 pH LAB URINALYSIS - AUTOMATED METHOD 05/22/2025 2:05 PM [facility] Leukocytes, Urine Trace(A) Negative LAB URINALYSIS - AUTOMATED METHOD 05/22/2025 2:05 PM [facility] Nitrite, Urine Negative Negative LAB URINALYSIS - AUTOMATED METHOD 05/22/2025 2:05 PM [facility] Protein, Urine Negative <=Trace mg/dL LAB URINALYSIS - AUTOMATED METHOD 05/22/2025 2:05 PM [facility] Glucose, Urine Negative Negative mg/dL LAB URINALYSIS - AUTOMATED METHOD 05/22/2025 2:05 PM [facility] Ketones, Urine Negative Negative mg/dL LAB URINALYSIS - AUTOMATED METHOD 05/22/2025 2:05 PM [facility] Urobilinogen, Urine 0.2 0.2 - 1.0 mg/dL LAB URINALYSIS - AUTOMATED METHOD 05/22/2025 2:05 PM [facility] Bilirubin, Urine Negative Negative LAB URINALYSIS - AUTOMATED METHOD 05/22/2025 2:05 PM [facility] Blood, Urine Negative Negative LAB URINALYSIS - AUTOMATED METHOD 05/22/2025 2:05 PM [facility] RBC, Urine 2.4 0 - 4 /HPF LAB URINALYSIS - AUTOMATED METHOD 05/22/2025 2:05 PM [facility] WBC, Urine 3.3 0 - 4 /HPF LAB URINALYSIS - AUTOMATED METHOD 05/22/2025 2:05 PM [facility] Squamous Epithelial, Urine 72(H) 0 - 60 /LPF LAB URINALYSIS - AUTOMATED METHOD 05/22/2025 2:05 PM [facility] Bacteria, Urine Few(A) Negative /HPF LAB URINALYSIS - AUTOMATED METHOD 05/22/2025 2:05 PM EDT [facility] Hyaline Casts, Urine 0.8 0 - 3 /LPF LAB URINALYSIS - AUTOMATED METHOD 05/22/2025 2:05 PM EDT [facility] Urine Urine specimen obtained by clean catch procedure / Unknown Non-blood Collection / Unknown 05/22/2025 1:12 PM EDT 05/22/2025 1:34 PM EDT us Rosemary Herring MD LAB URINE ORDERABLES Final Resul t [facility] [address] [place] [address], [place] [phone] * (ABNORMAL) CBC auto differential (05/22/2025 12:58 PM EDT) Only the most recent of2 resultswithin the time period is included. WBC 6.8 4.8 - 10.8 K/mcL LAB HEMETOLOGY METHOD 05/22/2025 1:48 PM EDT [facility] RBC 4.80 3.80 - 4.80 M/mcL LAB HEMETOLOGY METHOD 05/22/2025 1:48 PM EDT [facility] Hemoglobin 12.7 11.5 - 16.0 g/dL LAB HEMETOLOGY METHOD 05/22/2025 1:48 PM EDT [facility] Hematocrit 39.4 35.0 - 47.0 % LAB HEMETOLOGY METHOD 05/22/2025 1:48 PM EDT [facility] MCV 82.3 79.0 - 98.0 FL LAB HEMETOLOGY METHOD 05/22/2025 1:48 PM EDT [facility] MCH 26.5(L) 27.0 - 32.0 pcg LAB HEMETOLOGY METHOD [facility]25 [facility] MCHC 32.2 32.0 - 37.0 g/dL LAB HEMETOLOGY METHOD 05/22/2025 1:48 PM [facility] RDW 16.5(H) 11.0 - 15.0 % LAB HEMETOLOGY METHOD 05/22/2025 1:48 PM [facility] Platelets 323 130 - 400 K/mcL LAB HEMETOLOGY METHOD 05/22/2025 1:48 [facility] MPV 10.4 7.0 - 11.0 FL LAB HEMETOLOGY METHOD 05/22/2025 1:48 PM [facility] NRBC 0.0 <1.0 % LAB HEMETOLOGY METHOD 05/22/2025 1:48 PM [facility] NRBC Absolute 0.00 <0.10 K/mcL LAB HEMETOLOGY METHOD 05/22/2025 1:48 PM [facility] Neutrophils Relative 53.3 % LAB HEMETOLOGY METHOD 05/22/2025 1:48 PM [facility] Lymphocytes Relative 34.2 % LAB HEMETOLOGY METHOD 05/22/2025 1:48 PM [facility] Monocytes Relative 8.1 % LAB HEMETOLOGY METHOD 05/22/2025 1:48 PM [facility] Eosinophils Relative 3.5 % LAB HEMETOLOGY METHOD 05/22/2025 1:48 PM [facility] Basophils Relative 0.6 % LAB HEMETOLOGY METHOD 05/22/2025 1:48 PM [facility] Immature Granulocytes Relative 0.3 % LAB HEMETOLOGY METHOD 05/22/2025 1:48 PM [facility] Neutrophils Absolute 3.63 1.50 - 7.00 K/mcL LAB HEMETOLOGY METHOD 05/22/2025 1:48 PM EDT [facility] Lymphocytes Absolute 2.33 1.00 - 5.00 K/mcL LAB HEMETOLOGY METHOD 05/22/2025 1:48 PM EDT [facility] Monocytes Absolute 0.55 0.20 - 1.00 K/mcL LAB HEMETOLOGY METHOD 05/22/2025 1:48 PM EDT [facility] Eosinophils Absolute 0.24 0.00 - 0.50 K/[facility] LAB HEMETOLOGY METHOD 05/22/2025 1:48 PM EDT [facility] Basophils Absolute 0.04 0.00 - 0.20 K/[facility] LAB HEMETOLOGY METHOD 05/22/2025 1:48 PM EDT [facility] Immature Granulocytes Absolute 0.02 0.00 - 0.03 K/[facility] LAB HEMETOLOGY METHOD 05/22/2025 1:48 PM EDT [facility] Blood Venous blood specimen / Unknown Venipuncture / Unknown 05/22/2025 12:58 PM EDT 05/22/2025 1:33 PM EDT us George Shultz MD LAB BLOOD ORDERABLES Final Resul t Performing Organization Address City/[facility]/ZIP Co de Phone Number [facility] [address] [place] [address], * Lipase (05/22/2025 12:58 PM EDT) Lipase 29 13 - 75 unit/L LAB CHEMISTRY METHOD 05/22/2025 2:37 PM EDT [facility] Blood Venous blood specimen / Unknown Venipuncture / Unknown 05/22/2025 12:58 PM EDT 05/22/2025 1:34 PM EDT us George Shultz MD LAB BLOOD ORDERABLES Final Resul t [facility] [address] [place] [address], [place] [phone] * (ABNORMAL) Comprehensive metabolic panel (05/22/2025 12:58 PM EDT) Sodium 138 133 - 145 mmol/L LAB CHEMISTRY METHOD 05/22/2025 2:39 PM [facility] Potassium 4.7 3.5 - 5.5 mmol/L LAB CHEMISTRY METHOD 05/22/2025 2:39 PM [facility] Chloride 106 96 - 110 mmol/L LAB CHEMISTRY METHOD 05/22/2025 2:39 PM [facility] CO2 27 21 - 32 mmol/L LAB CHEMISTRY METHOD 05/22/2025 2:39 PM [facility] Anion Gap 5 3 - 11 LAB CHEMISTRY METHOD 05/22/2025 2:39 PM [facility] Glucose 108(H) 70 - 100 mg/dL LAB CHEMISTRY METHOD 05/22/2025 2:39 PM [facility] BUN 9 5 - 25 mg/dL LAB CHEMISTRY METHOD 05/22/2025 2:39 PM [facility] Creatinine 0.69 0.50 - 1.10 mg/dL LAB CHEMISTRY METHOD 05/22/2025 2:39 PM [facility] eGFR 111 >=60 mL/min/1. 73m2 LAB CHEMISTRY METHOD 05/22/2025 2:39 PM [facility] Comment:Calculation based on the Chronic Kidney Disease Epidemiology Collaboration (CKD-EPI) equation refit without adjustment for race. BUN/Creatinine Ratio 13.0 LAB CHEMISTRY METHOD 05/22/2025 2:39 PM [facility] Calcium 9.5 8.5 - 10.5 mg/dL LAB CHEMISTRY METHOD 05/22/2025 2:39 PM [facility] AST (SGOT) 19 10 - 42 unit/L LAB CHEMISTRY METHOD 05/22/2025 2:39 PM EDT [facility] ALT (SGPT) 26 10 - 60 unit/L LAB CHEMISTRY METHOD 05/22/2025 2:39 PM EDT [facility] Alkaline Phosphatase 80 42 - 121 unit/L LAB CHEMISTRY METHOD 05/22/2025 2:39 PM EDT [facility] Total Protein 6.8 6.0 - 8.0 g/dL LAB CHEMISTRY METHOD 05/22/2025 2:39 PM EDT [facility] Albumin 3.5 3.2 - 5.0 g/dL LAB CHEMISTRY METHOD 05/22/2025 2:39 PM EDT [facility] Total Bilirubin 0.3 0.0 - 1.4 mg/dL LAB CHEMISTRY METHOD 05/22/2025 2:39 PM EDT [facility] Blood Venous blood specimen / Unknown Venipuncture / Unknown 05/22/2025 12:58 PM EDT 05/22/2025 1:34 PM EDT us George Shultz MD LAB BLOOD ORDERABLES Final Resul t [facility] [address] [place] [address], [place] [phone] * Vascular US Duplex Lower Extremity Venous [...] Signed Date: 04/11/2025 12:03 ET Workstation ID: [id number] Transcribed By: Self Edit Transcribed Date: 04/11/2025 [...] Signed Date: 04/11/2025 12:03 ET Workstation ID: [id number] Transcribed By: Self Edit Transcribed Date: 04/11/2025 12:03 ET Leana BAEZA CV VASCULAR PROCEDURES F inal Result * Thyroid stimulating hormone with reflex to free t4 and free t3 (TSH Reflex) (04/11/2025 11:01 AM EDT) TSH 1.16 0.40 - 4.00 mcIU/mL LAB CHEMISTRY METHOD 04/11/2025 12:58 PM EDT [facility] Blood Venous blood specimen / Unknown Venipuncture / Unknown 04/11/2025 11:01 AM EDT 04/11/2025 11:10 AM EDT [facility] Shaquille BAEZA LAB BLOOD ORDERABLES Fin al Result Performing Organization Address [facility] Co de Phone Number [facility] [address] [place] [address], * Borrelia burgdorferi antibody (04/11/2025 11:01 AM EDT) [facility] Lyme Ab Negative Negative LAB CHEMISTRY METHOD 04/11/2025 2:22 PM EDT [facility] Comment: No laboratory evidence of infection with B. burgdorferi (Lyme disease). Negative results may occur in patients recently infected (<=14 days) with B. burgdorferi. If recent infection is suspected, repeat testing on a new sample collected in 7- 14 days is recommended. Blood Venous blood specimen / Unknown Venipuncture / Unknown 04/11/2025 11:01 AM EDT 04/11/2025 11:10 AM EDT Leana Shaquille BAEZA LAB BLOOD ORDERABLES Fin al Result Performing Organization Address [facility] Co de Phone Number [facility] [address] [place] [address], * (ABNORMAL) Basic metabolic panel (04/11/2025 11:01 AM EDT) [facility] Sodium 142 133 - 145 mmol/L LAB CHEMISTRY METHOD 04/11/2025 11:54 AM EDT [facility] Potassium 4.0 3.5 - 5.5 mmol/L LAB CHEMISTRY METHOD 04/11/2025 11:54 AM EDT [facility] Chloride 112(H) 96 - 110 mmol/L LAB CHEMISTRY METHOD 04/11/2025 11:54 AM EDT [facility] CO2 25 21 - 32 mmol/L LAB CHEMISTRY METHOD 04/11/2025 11:54 AM EDT [facility] Anion Gap 5 3 - 11 LAB CHEMISTRY METHOD 04/11/2025 11:54 AM [facility] Glucose 126(H) 70 - 100 mg/dL LAB CHEMISTRY METHOD 04/11/2025 11:54 AM [facility] BUN 10 5 - 25 mg/dL LAB CHEMISTRY METHOD 04/11/2025 11:54 AM [facility] Creatinine 0.73 0.50 - 1.10 mg/dL LAB CHEMISTRY METHOD 04/11/2025 11:54 AM EDT [facility] eGFR 105 >=60 mL/min/1. 73m2 LAB CHEMISTRY METHOD 04/11/2025 11:54 AM [facility] Comment:Calculation based on the Chronic Kidney Disease Epidemiology Collaboration (CKD-EPI) equation refit without adjustment for race. BUN/Creatinine Ratio 13.7 LAB CHEMISTRY METHOD 04/11/2025 11:54 AM [facility] Calcium 8.5 8.5 - 10.5 mg/dL LAB CHEMISTRY METHOD 04/11/2025 11:54 AM [facility] Blood Venous blood specimen / Unknown Venipuncture / Unknown 04/11/2025 11:01 AM EDT 04/11/2025 11:10 AM EDT Leana BAEZA LAB BLOOD ORDERABLES Fin al Result [facility] [address] [place] [address], from Last 3 Months Insurance MEDICAID - [place] Care Teams Supervisor Endless Track Vehicle Relationship Specialty Start Date End Date Millie Layton NP [facility] [place] [address] PCP - General 07/14/22
== END 2025-06-02 14:02 | disposition home or self-care (01) ==
LOC: HO.NEURO 14:01
PROVIDERS: Visit Provider Internal Medicine Rheumatology
DX: G57.93 Unspecified mononeuropathy of bilateral lower limbs (principal); R20.8 Other disturbances of skin sensation
CPT/HCPCS: 95886; 95909

== ENCOUNTER → 2025-06-02 14:04 | Outpatient (BNV) | payer MEDICAID, SELFPAY | PROVIDERS: Visit Provider Physical Medicine & Rehabilitation | DX: R20.8 Other disturbances of skin sensation (principal) | CPT/HCPCS: 95886; 95909 ==

== ENCOUNTER 2025-08-08 12:40 | Outpatient (AMB) | payer MEDICAID, SELFPAY ==
--- NOTE | 2025-08-08 12:48 | A.OFFVIS_ITS ---
Vital Signs 08/08/25 12:51 Height 5 ft 3.5 in Weight 238 lb 5.115 oz BMI 41.5 BP 110/70 Blood Pressure Location Lt brachial Position Sitting Comment unable to obtain pulse and o2 do to pt nails Intake Visit Reasons: 3months Intake Note: Patient presents today for an OA follow up. Accompanied by: Self / Same As Patient Allergies acetaminophen (From Tylenol) Allergy (Intermediate, Verified 08/08/25 12:54) Vomiting Penicillins Allergy (Intermediate, Verified 08/08/25 12:54) swollen Medication List - Last Reconciled 08/08/25 by Jake Macias MD albuterol sulfate 90 mcg/actuation 2 puffs inhalation Q6H PRN aripiprazole 15 mg PO DAILY budesonide 90 mcg/actuation (Pulmicort Flexhaler) 2 inhalations inhalation BID clonidine HCl 0.1 mg PO BID docusate sodium 100 mg PO BID PRN duloxetine 30 mg PO DAILY fluticasone propionate 50 mcg/actuation (Flovent Diskus) 1 inh inhalation BID hydroxyzine pamoate 25 mg PO TID PRN leg brace (Knee Support Brace) As directed Dx: osteoarthritis knee Left hinge knee brace lorazepam mg PO meclizine 25 mg PO DAILY meloxicam 15 mg PO DAILY milnacipran (Savella) 100 mg PO BID norethindrone (contraceptive) 0.35 mg PO DAILY tramadol 50 mg PO DAILY venlafaxine ER 150 mg PO QAM HPI HPI 3months: Details: She had recurrent chest pain and thinks she d/c cymbalta. She continues to have chest pain. She has not received communication from her PCP when she tries to contact PCP. She is thinking about having her son take her to the ER due to continue chest pain. She told her son that she wanted to end her life. As a result, he keeps her medications closed in a lock box. [facility] Medical History Chronic pain Asthma Surgical History History of hernia repair Hx of tubal ligation Family History Father Diabetes HTN (hypertension) Arthritis Mother HTN (hypertension) Arthritis CVD (cardiovascular disease) Maternal Aunt Breast cancer Colon cancer Social History (Reviewed 08/08/25 @ 12:55 by Josseline Chavarria [facility]) Household Members: Children Alcohol intake: current Cigarettes Per Day: 5 Years Smoked: 20 Physical Exam Vital Signs: Last Vital Signs BP 110/70 08/08/25 12:51 BMI result Body Mass Index 41.5 Const Other: General: Comfortable CVS: RRR Respiratory: clear to auscultation bilaterally. Good respiratory effort Skin: No lesions seen MSK: Diffuse allodynia. Tender to palpate bilateral knees. Left crepitus palpated. Knee flexion 90 degrees bilateral. No synovitis. Assessment & Plan Assessment & Plan (1) Osteoarthritis of knees, bilateral: Comment: Uncontrolled pain. She is also experiencing uncontrolled pain from fibromyalgia. It is unclear if she continues to take duloxetine. She continues to take meloxicam. Rheumatology history: She received right cortisone injection September 2023 and December 2023, which were ineffective. X-ray 11/07/2021 reveals minimal degenerative changes, left knee x-ray from 04/07/2024 is normal. She has failed meloxicam and diclofenac gel. Gabapentin caused chest pain in the past. Code(s): M17.0 - Bilateral primary osteoarthritis of knee Category: Medical Plan: She will call office after she returns home to check to see if duloxetine is in her locked medication box. If so, I will increase duloxetine to 60 mg daily. Left knee hinged brace prescription prescribed x2 Continue exercises daily Continue meloxicam 15 mg daily prescribed by PCP Return to clinic in 3 months (2) Neuropathy of foot: Comment: Six-month history. Her father has diabetic neuropathy. Laboratory workup revealed normal hemoglobin A1c and TSH. EMG of lower extremities was unremarkable. Code(s): G57.90 - Unspecified mononeuropathy of unspecified lower limb Category: Medical Plan: PCP follow-up for further workup of neuropathy (3) Fibromyalgia: Comment: Uncontrolled Code(s): M79.7 - Fibromyalgia Category: Medical Plan: See above Medications: Refilled leg brace (Knee Support Brace) As directed Dx: osteoarthritis knee Left hinge knee brace 1 ea 0RF Coding Level of Care Code Est Pt Level 4 (82193) Complex EM visit Add On G2211 Diagnoses Osteoarthritis of knees, bilateral M17.0 Neuropathy of foot G57.90 Fibromyalgia M79.7
[2025-08-08 12:51] VITALS: BP 110/70; BMI 41.5
--- OUTSIDE RECORDS SUMMARY | 2025-08-08 15:31 | XMS_ITS | Clinical Summary ---
Author Organization 175 [facility] Address [address] [place] [address] Phone Care Team Providers Care Property Disposal Manager Name Role Phone april Millie JACKIE Primary Care Provider [phone] Allergies Active Allergy Reactions Criticality Noted Date Comments Acetaminophen 05/23/2024 Other 05/23/2024 Penicillins 05/23/2024 Pregabalin Palpitations 03/12/2022 Chest discomfort Shrimp 03/12/2022 Medications meclizine HCl (MECLIZINE ORAL) Take by mouth. Activ e BUPROPION HCL ORAL Take by mouth. Activ e tramadol HCl (TRAMADOL ORAL) Take by mouth. Active baclofen (LIORESAL) 10 mg tablet Take 1 tablet (10 mg total) by mouth 3 (three) times a day for 5 days. 15 each 5 Active famotidine (PEPCID) 20 mg tablet Take 1 tablet (20 mg total) by mouth 2 (two) times a day for 15 days. 30 each 5 07/13/20 25 pantoprazole (PROTONIX) 40 mg EC tablet Take 1 tablet (40 mg total) by mouth 1 (one) time each day before breakfast for 14 days. Do not crush, chew, or split. 14 each 5 07/12/20 25 erythromycin 5 mg/gram (0.5 %) ophthalmic ointment Apply to left eye every 6 (six) hours for 10 doses. 3.5 g 5 08/03/20 25 Encounters Date Type Department Care Team Description 07/31/2025 2:26 PM EDT - 07/31/2025 3:15 PM EDT Emergency [facility] Emergency [address] [place] [phone] Abrasion of left cornea, initial encounter (Primary Dx) Discharge Disposition: Home or Self Care 07/12/2025 Telephone Gastroenterology - [place] [address] [place] [phone] Jennifer Love PA 06/28/2025 10:37 AM EDT - 06/28/2025 2:34 PM EDT Emergency [facility] Emergency [address] [place] [phone] Doron Post MD Epigastric abdominal pain (Primary Dx) Discharge Disposition: Home or Self Care 05/22/2025 12:00 PM EDT - 05/22/2025 4:48 PM EDT Emergency [facility] Emergency [address] [place] [phone] Rosemary Herring MD Left lower quadrant abdominal pain (Primary Dx) Discharge Disposition: Left Against Medical Advice from Last 3 Months Medical History Medical [...] Sign Reading Time Taken Comments Blood Pressure 141/79 07/31/2025 1:06 PM EDT Pulse 81 07/31/2025 1:06 PM EDT Temperature 36.9 C (98.4 F) 07/31/2025 1:06 PM EDT Respiratory Rate 18 07/31/2025 1:06 PM EDT Oxygen Saturation 100% 07/31/2025 1:06 PM EDT Inhaled Oxygen Concentration - - Weight 104 kg (230 lb) 07/31/2025 1:06 PM EDT Height 160 cm (5' 3 ) 07/31/2025 1:06 PM EDT Body Mass Index 40.74 07/31/2025 1:06 PM EDT Plan of Treatment Upcoming Encounters Date Type Department Care Team (Late st Contact Info) Description 11/29/2025 10:10 AM EST Consult Gastroenterology - [place] [address] [place] [phone] Jennifer Love PA [address] [place] [address] Health Maintenance Due Date Last Done Comments Breast Cancer Screening 1983 Hepatitis A Vaccines (1 of 2 - Risk 2-dose series) 2002 Cervical Cancer Screening: Pap Smear 02/09/2004 Hepatitis B Vaccines (3 of 3 - 19+ 3-dose series) 11/22/2014 09/27/2014, 03/30/2014 HIV Screening 10/04/2022 Social Influencers of Health Screening 10/04/2022 Depression Screening 11/02/2024 COVID-19 Vaccine ( season) 2025 01/02/2022, 11/21/2021 Influenza Vaccine (#1) 2025 , 10/07/2019, 11/20/2017, Additional history exists Cholesterol Screening (Lipid Panel) 12/01/2028 12/01/2023, 12/01/2023, 01/14/2023, Additional history exists DTaP,Tdap,and Td Vaccines (4 - Td or Tdap) 05/19/2033 05/19/2023, 10/07/2019, 07/10/2011 RSV Immunization Adult Patients (1 - 1-dose 75+ series) 2058 HPV Vaccines Completed 06/12/2010, 05/2008, 02/29/2008 Hepatitis [...] Procedure Name Priority Date/Time Associated Diagnosis Comments ECG ANNOTATED 06/29/2025 US ABDOMEN LIMITED STAT 06/28/2025 12 :16 PM EDT ECG 12-LEAD STAT 06/28/2025 11:42 AM EDT TROPONIN I HIGH SENSITIVITY STAT 06/28/2025 11:42 AM EDT POC , URINE DIAGNOSTIC STAT 06/28/2025 10:42 AM EDT CBC WITH AUTO DIFFERENTIAL STAT 06/28/2025 10:29 AM EDT LIPASE STAT 06/28/2025 10:29 AM EDT COMPREHENSIVE METABOLIC PANEL STAT 06/28/2025 10:29 AM EDT CBC AND DIFFERENTIAL STAT 06/28/2025 10:29 AM EDT HOFFMAN URINE CULTURE TUBE Routine 05/22/2025 1:38 [...] AND DIFFERENTIAL STAT 05/22/2025 12:58 PM EDT from Last 3 Months Results * ECG-Annotated (06/29/2025) us Provider Onbase MD ECG ORDERABLES Final Result * US Abdomen Limited (06/28/2025 12:16 PM EDT) Anatomical Region Laterality Modality Body Ultrasound 06/28/2025 12:2 2 PM EDT Impressions 06/28/2025 12:24 PM EDT Impression: Contracted gallbladder. No evidence of acute cholecystitis or biliary obstruction. Sigasirad ARYAN ([id number]) -------- FINAL REPORT -------- Dictated By: Belinda Cooper Dictated Date: 06/28/2025 12:22 ET Assigned Physician: Belinda Cooper Reviewed and Electronically Signed By: Belinda Cooper Signed Date: 06/28/2025 12:24 ET Workstation ID: [id number] Transcribed By: Self Edit Transcribed Date: 06/28/2025 12:22 ET Narrative 06/28/2025 12:24 PM EDT History: Right upper quadrant abdominal pain, nausea and vomiting. Comparison: 01/15/24, CT abdomen/pelvis 05/17/24 Findings: Real-time imaging of the abdomen, limited to the right upper quadrant, was performed. The hepatic echotexture is normal. No masses are identified. The portal vein is patent and exhibits normal, hepatopedal flow. The gallbladder is completely contracted, limiting assessment for gallstones. None is seen. If the patient has eaten, this consistent with a postprandial state. The common duct is normal in caliber, measuring 2 mm at the level of the hepatic artery and portal vein. No ascites is seen in the right upper quadrant. A survey view of the right kidney is unremarkable. The pancreas is partially obscured by bowel gas shadowing; the visualized portions of the neck and body appear normal. Procedure Note Belinda Cooper MD - 06/28/2025 History: Right upper quadrant abdominal pain, nausea and vomiting. Comparison: 01/15/24, CT abdomen/pelvis 05/17/24 Findings: Real-time imaging of the abdomen, limited to the right upper quadrant, wasperformed. The hepatic echotexture is normal. No masses are identified. The portalvein is patent and exhibits normal, hepatopedal flow. The gallbladder iscompletely contracted, limiting assessment for gallstones. None is seen.If the patient has eaten, this consistent with a postprandial state. Thecommon duct is normal in caliber, measuring 2 mm at the level of thehepatic artery and portal vein. No ascites is seen in the right upper quadrant. A survey view of the rightkidney is unremarkable. The pancreas is partially obscured by bowel gas shadowing; the visualizedportions of the neck and body appear normal. IMPRESSION: Impression: Contracted gallbladder. No evidence of acute cholecystitis or biliaryobstruction[place] ([id number]) -------- FINAL REPORT -------- Dictated By: Belinda Cooper Dictated Date: 06/28/2025 12:22 ET Assigned Physician: Belinda Cooper Reviewed and Electronically Signed By: Belinda Cooper Signed Date: 06/28/2025 12:24 ET Workstation ID: [id number] Transcribed By: Self Edit Transcribed Date: 06/28/2025 12:22 ET us Doron Post MD [facility] [place]ED[place] Final Result * ECG 12 lead (06/28/2025 11:42 AM EDT) Ventricular Rate ECG 65 BPM GEMUSE Atrial Rate 65 BPM GEMUSE P-R Interval 186 ms GEMUSE QRS Duration 88 ms GEMUSE Q-T Interval 420 ms GEMUSE QTc 436 ms GEMUSE P Wave [place] 46 degrees GEMUSE R [place] 64 degrees GEMUSE T [place] 25 degrees GEMUSE ECG Interpretation Normal sinus rhythm Normal ECG When compared with ECG of 06-MAY-2023 12:19, No significant change was found Confirmed by Max YEUNG JAMES ([id number]) on 06/28/2025 4:30:45 PM GEMUSE 06/28/2025 11:4 2 AM EDT 06/28/2025 4:30 PM EDT Doron Post MD ECG ORDERABLES Final Re sult Performing Organization Address [facility] de Phone Number GEMUSE * Troponin I high sensitivity (06/28/2025 11:42 AM EDT) [facility] High Sensitivity Troponin I <3 <=54 ng/L LAB CHEMISTRY METHOD 06/28/2025 1:01 PM EDT [facility] Blood Venous blood specimen / Unknown Venipuncture / Unknown 06/28/2025 11:42 AM EDT 06/28/2025 12:32 PM EDT Narrative [facility] - 06/28/2025 1:01 PM EDT High levels of biotin in samples may falsely decrease hsTroponin values. Use caution when interpreting hsTroponin results in patients taking biotin who exhibit renal impairment (eGFR <60) or in patients taking more than 20 mg/day of biotin. Doron Post MD LAB BLOOD ORDERABLES Fin al Result Performing Organization Address [facility] de Phone Number [facility] [address] [place] [address], [place] [phone] * POC , urine manually resulted (06/28/2025 10:42 AM EDT) Only the most recent of2 resultswithin the time period is included. Pathologist [facility] HCG, Ur POC Negative Negative POC hCG Int QC Pass? Yes Yes Urine Urine specimen obtained by clean catch procedure / Unknown 06/28/2025 10:42 AM EDT us Doron Post MD POINT OF CARE TEST ENTER /EDIT ORDERABLES Final Result * (ABNORMAL) CBC auto differential (06/28/2025 10:29 AM EDT) Only the most recent of2 resultswithin the time period is included. [facility] WBC 6.4 4.8 - 10.8 K/mcL LAB HEMETOLOGY METHOD 06/28/2025 10:[address] [facility] RBC 4.60 3.80 - 4.80 M/mcL LAB HEMETOLOGY METHOD 06/28/2025 10:[address] [facility] Hemoglobin 11.9 11.5 - 16.0 g/dL LAB HEMETOLOGY METHOD 06/28/2025 10:[address] [facility] Hematocrit 37.3 35.0 - 47.0 % LAB HEMETOLOGY METHOD 06/28/2025 10:[address] [facility] MCV 80.9 79.0 - 98.0 FL LAB HEMETOLOGY METHOD 06/28/2025 10:[address] [facility] MCH 25.8(L) 27.0 - 32.0 pcg LAB HEMETOLOGY METHOD 06/28/2025 10:[address] [facility] MCHC 31.9(L) 32.0 - 37.0 g/dL LAB HEMETOLOGY METHOD 06/28/2025 10:[address] [facility] RDW 16.1(H) 11.0 - 15.0 % LAB HEMETOLOGY METHOD 06/28/2025 10:[address] [facility] Platelets 282 130 - 400 K/mcL LAB HEMETOLOGY METHOD 06/28/2025 10:[address] [facility] MPV 10.1 7.0 - 11.0 FL LAB HEMETOLOGY METHOD 06/28/2025 10:[address] [facility] NRBC 0.0 <1.0 % LAB HEMETOLOGY METHOD 06/28/2025 10:[address] [facility] NRBC Absolute 0.00 <0.10 K/mcL LAB HEMETOLOGY METHOD 06/28/2025 10:[address] [facility] Neutrophils Relative 54.0 % LAB HEMETOLOGY METHOD 06/28/2025 10:[address] [facility] Lymphocytes Relative 34.9 % LAB HEMETOLOGY METHOD 06/28/2025 10:[address] [facility] Monocytes Relative 6.6 % LAB HEMETOLOGY METHOD 06/28/2025 10:[address] [facility] Eosinophils Relative 3.6 % LAB HEMETOLOGY METHOD 06/28/2025 10:[address] [facility] Basophils Relative 0.6 % LAB HEMETOLOGY METHOD 06/28/2025 10:[address] [facility] Immature Granulocytes Relative 0.3 % LAB HEMETOLOGY METHOD 06/28/2025 10:[address] [facility] Neutrophils Absolute 3.43 1.50 - 7.00 K/mcL LAB HEMETOLOGY METHOD 06/28/2025 10:[address] [facility] Lymphocytes Absolute 2.22 1.00 - 5.00 K/mcL LAB HEMETOLOGY METHOD 06/28/2025 10:[address] [facility] Monocytes Absolute 0.42 0.20 - 1.00 K/mcL LAB HEMETOLOGY METHOD 06/28/2025 10:[address] [facility] Eosinophils Absolute 0.23 0.00 - 0.50 K/mcL LAB HEMETOLOGY METHOD 06/28/2025 10:[address] [facility] Basophils Absolute 0.04 0.00 - 0.20 K/mcL LAB HEMETOLOGY METHOD 06/28/2025 10:[address] [facility] Immature Granulocytes Absolute 0.02 0.00 - 0.03 K/mcL LAB HEMETOLOGY METHOD 06/28/2025 10:49 AM EDT [facility] Blood Venous blood specimen / Unknown Venipuncture / Unknown 06/28/2025 10:29 AM EDT 06/28/2025 10:36 AM EDT us Doron Post MD LAB BLOOD ORDERABLES Fin al Result Performing Organization Address [facility] Co de Phone Number [facility] [address] [place] [address], [place] [phone] * Lipase (06/28/2025 10:29 AM EDT) Only the most recent of2 resultswithin the time period is included. Lipase 40 13 - 75 unit/L LAB CHEMISTRY METHOD 06/28/2025 11:06 AM EDT [facility] Blood Venous blood specimen / Unknown Venipuncture / Unknown 06/28/2025 10:29 AM EDT 06/28/2025 10:36 AM EDT us Doron Post MD LAB BLOOD ORDERABLES Fin al Result Performing Organization Address [facility] de Phone Number [facility] [address] [place] [address], [place] [phone] * (ABNORMAL) Comprehensive metabolic panel (06/28/2025 10:29 AM EDT) Only the most recent of2 resultswithin the time period is included. Sodium 138 133 - 145 mmol/L LAB CHEMISTRY METHOD 06/28/2025 11:06 AM EDT [facility] Potassium 4.1 3.5 - 5.5 mmol/L LAB CHEMISTRY METHOD 06/28/2025 11:06 AM EDT [facility] Chloride 108 96 - 110 mmol/L LAB CHEMISTRY METHOD 06/28/2025 11:[address] [facility] CO2 27 21 - 32 mmol/L LAB CHEMISTRY METHOD 06/28/2025 11:[address] [facility] Anion Gap 3 3 - 11 LAB CHEMISTRY METHOD 06/28/2025 11:[address] [facility] Glucose 106(H) 70 - 100 mg/dL LAB CHEMISTRY METHOD 06/28/2025 11:[address] [facility] BUN 10 5 - 25 mg/dL LAB CHEMISTRY METHOD 06/28/2025 11:[address] [facility] Creatinine 0.66 0.50 - 1.10 mg/dL LAB CHEMISTRY METHOD 06/28/2025 11:[address] [facility] eGFR 112 >=60 mL/min/1. 73m2 LAB CHEMISTRY METHOD 06/28/2025 11:[address] [facility] Comment:Calculation based on the Chronic Kidney Disease Epidemiology Collaboration (CKD-EPI) equation refit without adjustment for race. BUN/Creatinine Ratio 15.2 LAB CHEMISTRY METHOD 06/28/2025 11:[address] [facility] Calcium 8.9 8.5 - 10.5 mg/dL LAB CHEMISTRY METHOD 06/28/2025 11:[address] [facility] AST (SGOT) 23 10 - 42 unit/L LAB CHEMISTRY METHOD 06/28/2025 11:[address] [facility] ALT (SGPT) 26 10 - 60 unit/L LAB CHEMISTRY METHOD 06/28/2025 11:[address] [facility] Alkaline Phosphatase 74 42 - 121 unit/L LAB CHEMISTRY METHOD 06/28/2025 11:[address] [facility] Total Protein 6.6 6.0 - 8.0 g/dL LAB CHEMISTRY METHOD 06/28/2025 11:[address] [facility] Albumin 3.5 3.2 - 5.0 g/dL LAB CHEMISTRY METHOD 06/28/2025 11:06 AM EDT [facility] Total Bilirubin 0.5 0.0 - 1.4 mg/dL LAB CHEMISTRY METHOD 06/28/2025 11:06 AM EDT [facility] Blood Venous blood specimen / Unknown Venipuncture / Unknown 06/28/2025 10:29 AM EDT 06/28/2025 10:36 AM EDT Doron Post MD LAB BLOOD ORDERABLES Fin al Result Performing Organization Address [facility]/ZIP Co de Phone Number [facility] [address] [place] [address], [place] [phone] * Hoffman urine culture tube (05/22/2025 1:38 PM EDT) Extra Tube Hold for add-ons. 05/22/2025 3:01 PM EDT [facility] Comment:Auto resulted. Urine Urine specimen obtained by clean catch procedure / Unknown 05/22/2025 1:38 PM EDT 05/22/2025 1:39 PM EDT Rosemary Herring MD LAB URINE ORDERABLES Final Resul t Performing Organization Address [facility]/ZIP Co de Phone Number [facility] [address] [place] [address], [place] [phone] * (ABNORMAL) Urinalysis with reflex microscopic (05/22/2025 1:12 PM EDT) Specific [place] Urine 1.021 1.003 - 1.030 LAB URINALYSIS - AUTOMATED METHOD 05/22/2025 2:05 PM EDT [facility] pH, Urine 6.0 5.0 - 8.0 pH LAB URINALYSIS - AUTOMATED METHOD 05/22/2025 2:05 PM EDT [facility] Leukocytes, Urine Trace(A) Negative LAB URINALYSIS - AUTOMATED METHOD 05/22/2025 2:[address] [facility] Nitrite, Urine Negative Negative LAB URINALYSIS - AUTOMATED METHOD 05/22/2025 2:[address] [facility] Protein, Urine Negative <=Trace mg/dL LAB URINALYSIS - AUTOMATED METHOD 05/22/2025 2:[address] [facility] Glucose, Urine Negative Negative mg/dL LAB URINALYSIS - AUTOMATED METHOD 05/22/2025 2:[address] [facility] Ketones, Urine Negative Negative mg/dL LAB URINALYSIS - AUTOMATED METHOD 05/22/2025 2:[address] [facility] Urobilinogen, Urine 0.2 0.2 - 1.0 mg/dL LAB URINALYSIS - AUTOMATED METHOD 05/22/2025 2:[address] [facility] Bilirubin, Urine Negative Negative LAB URINALYSIS - AUTOMATED METHOD 05/22/2025 2:[address] [facility] Blood, Urine Negative Negative LAB URINALYSIS - AUTOMATED METHOD 05/22/2025 2:[address] [facility] RBC, Urine 2.4 0 - 4 /HPF LAB URINALYSIS - AUTOMATED METHOD 05/22/2025 2:[address] [facility] WBC, Urine 3.3 0 - 4 /HPF LAB URINALYSIS - AUTOMATED METHOD 05/22/2025 2:[address] [facility] Squamous Epithelial, Urine 72(H) 0 - 60 /LPF LAB URINALYSIS - AUTOMATED METHOD 05/22/2025 2:[address] [facility] Bacteria, Urine Few(A) Negative /HPF LAB URINALYSIS - AUTOMATED METHOD 05/22/2025 2:[address] [facility] Hyaline Casts, Urine 0.8 0 - 3 /LPF LAB URINALYSIS - AUTOMATED METHOD 05/22/2025 2:[address] [facility] Urine Urine specimen obtained by clean catch procedure / Unknown Non-blood Collection / Unknown 05/22/2025 1:12 PM EDT 05/22/2025 1:34 PM EDT us Rosemary Herring MD LAB URINE ORDERABLES Final Resul t [facility] ([facility] [address] [place] [address], from Last 3 Months Insurance MEDICAID - [place] Care Teams Property Disposal Manager Relationship Specialty Start Date End Date Millie Layton NP [address] [place] [address] PCP - General 07/14/22
--- OUTSIDE RECORDS SUMMARY | 2025-08-08 15:31 | XMS_ITS | Clinical Summary ---
Author Organization [facility] Address [address] [place] [address] Care Team Providers Care Field Services Analyst Name Role Phone Unavailable Primary Care Provider Unavailabl e Encounters Date Type Department Care Team Description 05/23/2025 Population Health Risk Score [facility] (C3) Department [address] [address] Provider, Population Health Generic from [...] Date Last Done Comments Depression Screening 1983 Lipid Panel 1983 SDOH Screening 1983 Disability Screening 1983 Alcohol/Substance Use Screening 1995 Tobacco Screening 1995 Family Planning (PISQ) 1998 Hepatitis C Screening 2001 Hepatitis A Vaccines (1 of 2 - Risk 2-dose series) 2002 Pap Smear 02/09/2004 Cervical Cancer Screening 2013 HPV/Cotest 2013 Hepatitis B Vaccines (3 of 3 - 19+ 3-dose series) 11/22/2014 09/27/2014, 03/30/2014 Mammogram 2023 COVID-19 Vaccine ( season) 2025 01/02/2022, 11/21/2021 Influenza Vaccine (#1) 2025 , 10/07/2019, 11/20/2017, Additional history exists DTaP/Tdap/Td Vaccines (3 - Td or Tdap) 10/07/2029 10/07/2019, 07/10/2011 Zoster Vaccines (1 of 2) 2033 RSV Patients and Patients Aged 60 years or older (1 - 1-dose 75+ series) 2058 HPV Vaccines Completed 06/12/2010, 05/2008, 02/29/2008 HIV Screening Completed 10/23/2021, 10/23/2021 Pneumococcal Vaccine: Pediatrics (0 to 5 Years) and At-Risk Patients (6 to 49) Years Completed 06/29/2024, 11/20/2017 HIB Vaccines Aged Out [...]
== END 2025-08-08 13:17 | disposition home or self-care (01) ==
LOC: HO.RHES 12:41
PROVIDERS: PCP Nurse Practitioner Family; Referring Provider Nurse Practitioner Family; Visit Provider Internal Medicine Rheumatology
DX: M17.0 Bilateral primary osteoarthritis of knee (principal); G57.90 Unspecified mononeuropathy of unspecified lower limb; M79.7 Fibromyalgia
CPT/HCPCS: 99214

== ENCOUNTER → 2025-08-08 12:40 | Outpatient (BNVA) | payer MEDICAID, SELFPAY | PROVIDERS: Visit Provider Internal Medicine Rheumatology | DX: M17.0 Bilateral primary osteoarthritis of knee (principal); G57.90 Unspecified mononeuropathy of unspecified lower limb; M79.7 Fibromyalgia | CPT/HCPCS: 99212 ==